=== PATIENT | female | born 1960 | race Two or more races ===

== ENCOUNTER 2019-01-12 19:34 | Inpatient (IN) | payer OTHER, MEDICAID | END 2019-01-15 13:00 | disposition home or self-care (01) | LOC: TELE 01-13 01:56 → ER 19:34 → CENTRAL 01-14 23:29 → TELE-CENTR 01-13 22:10 | DX: J44.1 Chronic obstructive pulmonary disease with (acute) exacerbation (principal); N17.0 Acute kidney failure with tubular necrosis; E11.65 Type 2 diabetes mellitus with hyperglycemia; E11.21 Type 2 diabetes mellitus with diabetic nephropathy; I11.0 Hypertensive heart disease with heart failure; I50.32 Chronic diastolic (congestive) heart failure; E66.01 Morbid (severe) obesity due to excess calories; E87.1 Hypo-osmolality and hyponatremia; E44.1 Mild protein-calorie malnutrition; E78.5 Hyperlipidemia, unspecified; G62.9 Polyneuropathy, unspecified; R07.89 Other chest pain ==